=== PATIENT | male | born 1980 | race Caucasian/White ===

== ENCOUNTER 2017-12-30 08:23 | Emergency (ER) | payer MEDICAID, SELFPAY ==
[2017-12-30 08:35] VITALS: BP 122/82; PULSE 77; RESP 20; TEMP 36.9; O2SAT 98
[2017-12-30] MEDS: Normal Saline 1,000 ML 1000 ML IV (09:00)
--- NOTE | 2017-12-30 09:08 | DI.RPTCT_ITS ---
SYMPTOM/DIAGNOSIS: H/O TICS, LLQ PAIN CT ABDOMEN AND PELVIS: Comparison is made with 19 October 2016. Images were performed from the lung bases through the ischial tuberosities after IV and without oral contrast. There is marked wall thickening in the sigmoid colon along with multiple diverticula. There is stranding in the surrounding fat, consistent with diverticulitis. The inflammation is in the same location as on the previous examination. There is now marked circumferential bladder wall thickening. This may be secondary to adjacent inflammation from diverticulitis. There is no evidence of an abscess. There is a small amount of fluid in the pelvis. The lung bases are clear. Heart size is normal. The liver, gallbladder, spleen, pancreas, kidneys and adrenals are unremarkable. The appendix appears normal. There is no evidence of obstruction. IMPRESSION: Findings are consistent with sigmoid diverticulitis in the same location as on the previous exam. There is adjacent inflammation of the urinary bladder.
[2017-12-30 09:09] LABS: Abs Immature Grans 0.02 k/cumm (0.0-0.09); Absolute Basophil Count 0.01 k/cumm (0.0-0.2); Absolute Eosinophil Count 0.04 k/cumm (0.0-0.7); Absolute Lymphocyte Count 1.68 k/cumm (1.2-3.4); Absolute Monocyte Count 1.18 k/cumm (0.11-0.7); Absolute Neutrophil Count 9.34 k/cumm (1.2-6.7); Basophils % 0.1; Eosinophils % 0.3; HGB 15.4 g/dL (13.5-17.5); Immature Grans % 0.2; Lymphocytes % 13.7; Mean Corpuscular Hemoglobin 31.8 pg (27.0-33.0); Mean Corpuscular Volume 90.7 fL (80-95); Mean Platelet Volume 9.7 fL (8.0-11.0); Monocytes % 9.6; Neutrophils % 76.1; Platelet Count 217 x1000/uL (130-400); RBC 4.85 m/cumm (4.50-6.00); RBC Distribution Width 12.7 % (11.8-14.1); White Blood Cell Count 12.27 k/cumm (4.4-10.8)
[2017-12-30 09:22] LABS: ALT 29 U/L (12-78); AST 20 U/L (15-37); Albumin 3.9 g/dL (3.4-5.0); Alkaline Phosphatase 59 U/L (46-116); Amylase 44 U/L (25-115); Anion Gap 2.8 mmol/L (3-11); BUN 11 mg/dL (7-18); Bilirubin, Total 1.2 mg/dL (0.2-1.0); CO2 31.2 mmol/L (21.0-32.0); CREATININE 0.91 mg/dL (0.70-1.30); Calcium 8.6 mg/dL (8.5-10.1); Chloride 100 mmol/L (98-107); Glucose 89 mg/dL (70-100); Lipase 106 U/L (73-393); Magnesium 1.8 mg/dL (1.8-2.4); Potassium 4.3 mmol/L (3.5-5.1); Sodium 134 mmol/L (136-145); Total Protein 7.7 g/dL (6.4-8.2)
[2017-12-30 10:09] LABS: Bilirubin Negative (Negative); Blood Negative (Negative); Clarity Clear; Glucose Negative (Negative); Ketones Negative (Negative); Leukocyte Esterase Negative (Negative); Nitrite Negative (Negative); Urobilinogen 0.2 EU/dL (Up TO 0.2); pH 6.5 (5-8)
[2017-12-30] MEDS: Omnipaque 350 MG/ML 100 ML BTL IJ (10:15)
[2017-12-30] MEDS: CIPROFLOXACIN 400 MG/200 ML BAG 200 MG IVPB (10:44)
[2017-12-30] MEDS: MetroNIDAZOLE 500 MG/100 ML BAG 100 MG IVPB (10:45)
[2017-12-30] MEDS: Normal Saline Flush 10 ML SYR IVP (10:45)
--- NOTE | 2017-12-30 11:26 | ED.GENADUL ---
Disposition Clinical Impression: Diverticulitis Disposition: HOME Condition: Good Instructions: Diverticulitis (ED) Additional Instructions: Please take the antibiotics as directed. Please use Tylenol for your pain. Please do not drink any alcohol with your antibiotics. Or while taking the antibiotic. If you notice any pain in your joints, or your tendons please do not perform any vigorous exercise and contact the physician. If you notice any worsening of your symptoms, or any new symptoms such as vomiting, diarrhea, fever, chills, shortness of breath, chest pain, numbness, weakness, or fainting , please return immediately to the emergency department for reevaluation. Please follow up with your primary care provider as soon as possible for reassessment and reevaluation. As always, it was a pleasure participating in your medical care today. Prescriptions: Ciprofloxacin [Cipro] 500 mg PO BID #20 tab Metronidazole [Flagyl] 500 mg PO TID #30 tablet Referrals: Lissy Obrien NP [Primary Care Provider] - Medical Decision Making - Lab Data Laboratory Tests 12/30/17 12/30/17 12/30/17 08:51 08:51 08:51 WBC 12.27 H RBC 4.85 Hgb 15.4 Hct 44.0 MCV 90.7 MCH 31.8 MCHC 35.0 RDW 12.7 Plt Count 217 MPV 9.7 Immature Gran % 0.2 Neutrophils % 76.1 Lymphocytes % 13.7 Monocytes % 9.6 Eosinophils % 0.3 Basophils % 0.1 Absolute Neutrophils 9.34 H Absolute Lymphocytes 1.68 Absolute Monocytes 1.18 H Absolute Eosinophils 0.04 Absolute Basophils 0.01 Sodium 134 L Potassium 4.3 Chloride 100 Carbon Dioxide 31.2 Anion Gap 2.8 L BUN 11 Creatinine 0.91 Estimated GFR/1.73 m2 >= 60.00 Glucose 89 Calcium 8.6 Magnesium 1.8 Total Bilirubin 1.2 H AST 20 ALT 29 Alkaline Phosphatase 59 Total Protein 7.7 Albumin 3.9 Amylase 44 Lipase 106 Urine Color Urine Clarity Urine pH Ur Specific [place] Urine Protein Urine Ketones Urine Blood Urine Nitrite Urine Bilirubin Urine Urobilinogen Ur Leukocyte Esterase Urine Glucose Patient ABO/Rh O Positive Antibody Screen Negative 12/30/17 10:04 WBC RBC Hgb Hct MCV MCH MCHC RDW Plt Count MPV Immature Gran % Neutrophils % Lymphocytes % Monocytes % Eosinophils % Basophils % Absolute Neutrophils Absolute Lymphocytes Absolute Monocytes Absolute Eosinophils Absolute Basophils Sodium Potassium Chloride Carbon Dioxide Anion Gap BUN Creatinine Estimated GFR/1.73 m2 Glucose Calcium Magnesium Total Bilirubin AST ALT Alkaline Phosphatase Total Protein Albumin Amylase Lipase Urine Color Yellow Urine Clarity Clear Urine pH 6.5 Ur Specific [place] 1.010 Urine Protein Negative Urine Ketones Negative Urine Blood Negative Urine Nitrite Negative Urine Bilirubin Negative Urine Urobilinogen 0.2 Ur Leukocyte Esterase Negative Urine Glucose Negative Patient ABO/Rh Antibody Screen - Medical Decision Making This is a very pleasant 37-year-old male who presents with left lower quadrant pain. Signs and symptoms are concerning for diverticulitis. Laboratory workup demonstrates a mildly elevated white count, but he is afebrile, demonstrates no significant tachycardia, demonstrates only mild tenderness on exam. CT the scan results were reported by Dr. Mitchell, and were evidence of diverticulitis, but no evidence of abscess or perforation. The patient has been refusing pain medications and states that he is able to tolerate the pain well at this time. We have given him Cipro and Flagyl through the IV, we will give him a prescription for home use as he has been able to continue to tolerate p.o. well. We discussed red flags which to return, including the importance of avoiding alcohol and to be aware of any tendon pain, with his Cipro use and the patient understands. I have extensively reviewed the treatment plan and discharge instructions with the patient. I have addressed all patient concerns at this time. The patient was made aware of what symptoms to monitor for that would warrant a return to the emergency department. Discussed the plan with the patient, they demonstrate verbal understanding and agreement with our assessment and plan at this time. History of Present Illness - General Chief complaint: Abd Prob Stated complaint: DIVERTICULITIS Time Seen by Provider: 12/30/17 09:02 - History of Present Illness Initial comments: This is a 37-year-old male with a past medical history of diverticulitis who presents today for evaluation of left lower quadrant abdominal pain for the last 3 days. He has noticed a very small amount of blood in his stool, but no significant hemorrhage, or dark melena. He states that his symptoms are similar to his previous diverticulitis episodes. He has had no vomiting, and no significant diarrhea. He has been able to maintain a regular but limited diet. He denies any dysuria, or hematuria. He denies any fever, chills, or worsening of his pain. He was more concerned for the persistence of his pain. Patient denies any recent abdominal surgeries, any history of IV illicit drug use, or any pertinent family history. He denies any other complaints at this time. He does have an allergy to penicillins but has tolerated Cipro and Flagyl before. - Related Data Ibuprofen 800 mg PO TID PRN #30 tablet 07/24/17 Cetirizine HCl 10 mg PO DAILY #30 tab-cap 08/04/17 Ciprofloxacin [Cipro] 500 mg PO BID #20 tab 12/30/17 Metronidazole [Flagyl] 500 mg PO TID #30 tablet 12/30/17 Allergies Allergy/AdvReac Type Severity Reaction Status Date / Time Penicillins Allergy Severe hives Unverified 12/30/17 08:36 Review of Systems Other: 10 point review of systems was performed, pertinent positives and negatives are noted in the history of present illness. Past Medical History - Past Medical History Medical history: no medical history Surgical history: no surgical history - Social History Alcohol use: occasionally Drug use: none General Exam - Other Other exam information: 1.Const: Well-nourished, Well-developed, appearing stated age 2.Eyes: PERRL, no conjunctival injection, and symmetrical lids. 3.ENT: Atraumatic external nose and ears. Moist MM. Neck: Symmetric, trachea midline, No thyromegaly. 4.CVS: +S1/S2, No murmurs or gallops. Peripheral pulses 2+ and equal in all extremities. Brisk capillary refill in all extremities. 5.RESP: Unlabored respiratory effort. Clear to auscultation bilaterally. No wheezes rales or rhonchi 6.GI: Soft, Nontender/Nondistended, No hepatosplenomegaly. No guarding or rebound. Mild tenderness in left lower quadrant. No pain in the right lower quadrant. Negative Calle sign. Negative obturator and psoas sign. 7.MSK: Normocephalic/Atraumatic, Extremities w/o deformity or ttp No cyanosis or clubbing, Normal movement of all extremities 8.Skin: Warm, Dry. No rashes or lesions. 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 Sensation grossly intact, no focal neurologic deficits. 10.Psych: (AAO) x3. Appropriate mood and affect Course Vital Signs - 24 hr 12/30/17 08:35 Temperature 36.9 C Pulse 77 Respiratory 20 Rate Blood Pressure 122/82 Pulse Oximetry 98
[2017-12-30 12:08] VITALS: BP 136/74; PULSE 64; RESP 18; TEMP 36.9; O2SAT 98
== END 2017-12-30 11:50 | disposition home or self-care (01) ==
PROVIDERS: Emergency Provider Student in an Organized Health Care Education/Training Program; PCP Nurse Practitioner Family
DX: K57.33 Diverticulitis of large intestine without perforation or abscess with bleeding (principal); R10.32 Left lower quadrant pain
CPT/HCPCS: 80053; 83690; 86850; 86900; 86901; 96361; 96365; 96368; 99285; 74177; 81003; 82150; 83735; 85025; J0744; J3490

== ENCOUNTER 2018-02-25 18:54 | Emergency (ER) | payer MEDICAID, SELFPAY ==
[2018-02-25 19:16] VITALS: BP 115/70; PULSE 82; RESP 20; TEMP 37.2; O2SAT 99
[2018-02-25 19:55] LABS: Abs Immature Grans 0.02 k/cumm (0.0-0.09); Absolute Basophil Count 0.03 k/cumm (0.0-0.2); Absolute Eosinophil Count 0.07 k/cumm (0.0-0.7); Absolute Lymphocyte Count 2.23 k/cumm (1.2-3.4); Absolute Monocyte Count 1.07 k/cumm (0.11-0.7); Absolute Neutrophil Count 8.19 k/cumm (1.2-6.7); Basophils % 0.3; Eosinophils % 0.6; HGB 13.6 g/dL (13.5-17.5); Immature Grans % 0.2; Lymphocytes % 19.2; Mean Corp. HGB Concentration 34.9 g/dL (32.0-36.0); Mean Corpuscular Hemoglobin 31.8 pg (27.0-33.0); Mean Corpuscular Volume 91.1 fL (80-95); Mean Platelet Volume 9.5 fL (8.0-11.0); Monocytes % 9.2; Neutrophils % 70.5; Platelet Count 249 x1000/uL (130-400); RBC 4.28 m/cumm (4.50-6.00); RBC Distribution Width 12.2 % (11.8-14.1); White Blood Cell Count 11.61 k/cumm (4.4-10.8)
--- NOTE | 2018-02-25 20:02 | ED.GENADUL_ITS ---
Discharge Plan Disposition Patient Disposition: HOME Condition: Stable Discharge Details Chief Complaint: Abd Prob Clinical Impression: Diverticulitis Primary Care Provider: Lissy Obrien ED Provider: Earle Hall Home Meds and New Rx's Prescriptions: New metronidazole 500 mg tablet 500 mg PO TID Qty: 21 RF: 0 ciprofloxacin HCl 500 mg tablet 500 mg PO Q12H Qty: 14 RF: 0 Continue ibuprofen 800 MG tablet 800 mg PO TID PRN (Reason: Pain) Qty: 30 RF: 0 cetirizine 10 MG tablet 10 mg PO DAILY PRNRF: 0 Discharge Instructions Instructions: Diverticulitis (ED) Additional Instructions: if you have severe worsening of pain, high fevers or persistent vomit return to the emergency department Discharge Data Discharge Physician: Earle Hall Medical Decision Making 37 yo male who has a hx of diverticulitis, last this past December, comes in with llq pain since last and states it feels similar to his prior episodes of diverticulitis. He has mild pain in the llq without guarding or rebound and appears well systemically so dobut sepsis or abscess. Will obtain labs and monitor. Pt declines CT at this time which if he remains hd stable without fevers and his hx is reasonable at this time. HE has no rlq or other findings to suggest appendicitis and no testicle pain or swelling to suggest torsion pt's labs show no significant acute abnormalities. Still only has mild tenderness in llq. He is still preferring to start abx tx rather than ct, advised he must return if he worsens in anyway and will f/u as scheduled with his pcp on Friday Differential Diagnosis diverticulitis, colitis Lab Data Lab results reviewed: Yes I reviewed the patient's lab results. HPI General Mode of arrival: ambulatory . Date/Time Provider Initiated Documentation: 02/25/18 19:45 . Limitations to Documentation: no limitations . Information obtained by: patient . History of Present Illness 37 year old M presents to the emergency department with the chief complaint of abdominal pain, described as moderate, with intensity rated at 7. Quality is described as stabbing, and is localized to the abdomen. Patient reports no radiation. Patient started experiencing this day(s) (6) and it has been constant. No relieving factors improve symptom(s), No exacerbating factors reported . Patient did receive the following treatments prior to arrival, none Related Data Home Medications Medication Instructions Recorded Confirmed ibuprofen 800 mg PO TID PRN #30 tablet 07/24/17 02/25/18 cetirizine 10 mg PO DAILY PRN 02/25/18 02/25/18 ciprofloxacin HCl 500 mg PO Q12H #14 tab 02/25/18 metronidazole 500 mg PO TID #21 tab 02/25/18 Previous Rx's Medication Instructions Recorded ibuprofen 800 mg PO TID PRN #30 tablet 07/24/17 ciprofloxacin HCl 500 mg PO Q12H #14 tab 02/25/18 metronidazole 500 mg PO TID #21 tab 02/25/18 Allergies Allergy/AdvReac Type Severity Reaction Status Date / Time Penicillins Allergy Severe hives Unverified 02/25/18 19:21 General Stated Complaint: Abd Prob CHAPARRITA: 3 Review of Systems Review of Systems All systems reviewed & are unremarkable except as noted in HPI and below Constitutional Denies chills, Denies fever(s) and Denies weakness Eyes Denies loss of vision ENT Denies change in voice Cardiovascular Denies chest pain and Denies dyspnea Respiratory Denies dyspnea Gastrointestinal Denies vomiting Genitourinary Denies dysuria Musculoskeletal Denies joint swelling Integumentary/Breasts Denies rash Neurologic Denies loss of vision and Denies weakness Psychiatric Denies depression Endocrine Denies cold intolerance and Denies heat intolerance Allergic/Immunologic Reports urticaria PFSH Family History Mother No problems noted. Father No problems noted. Sister No problems noted. Grandfather Neoplasm Grandfather No problems noted. Grandmother Diabetes Cerebrovascular accident Asthma Grandmother Bipolar disorder Son Asthma Son No problems noted. Daughter No problems noted. Maternal Uncle MS (multiple sclerosis) Social History Smoking/Tobacco Use Status: Former Tobacco Use Surgical History Colonoscopy - IV Sedation (01/03/17) Vasectomy Exam Const General: no acute distress Orientation: alert HENMT Head: normal to inspection Ears: external ears normal General nose exam: external nose normal Mouth: moist mucous membranes Eyes General: appearance normal, both eyes and all related structures Neck Neck: normal visual inspection Resp Effort & Inspection: normal respiratory effort and able to speak in complete sentences Cardio Rate: regular rate Skin General skin exam: no rashes or lesions noted Neuro General: alert and oriented x3 Extrem General: normal to inspection Psych Mental Status: mental status grossly normal Course Vital Signs Temperature 37.2 C 02/25/18 19:16 Pulse 82 02/25/18 19:16 Respiratory Rate 20 02/25/18 19:16 Blood Pressure 115/70 02/25/18 19:16 Pulse Oximetry 99 02/25/18 19:16 Temperature 37.2 C 02/25/18 19:16 Temperature Source Skin 02/25/18 19:16 Pulse 82 02/25/18 19:16 Respiratory Rate 20 02/25/18 19:16 Respiratory Effort Non-Labored 02/25/18 19:19 Blood Pressure 115/70 02/25/18 19:16 Blood Pressure Position Sitting 02/25/18 19:16 Pulse Oximetry 99 02/25/18 19:16 Oxygen Delivery Method Room Air 02/25/18 19:16 Oxygen Flow Rate 0 02/25/18 19:16 Pain Level 7 02/25/18 19:16 Comment 02/25/18 19:16 Lab/Test Results Lab/Test Results: Laboratory Tests Range/Units 02/25/18 19:40 WBC (4.4-10.8) k/cumm 11.61 H RBC (4.50-6.00) m/cumm 4.28 L Hgb (13.5-17.5) g/dL 13.6 Hct (40.0-50.0) % 39.0 L MCV (80-95) fL 91.1 MCH (27.0-33.0) pg 31.8 MCHC (32.0-36.0) g/dL 34.9 RDW (11.8-14.1) % 12.2 Plt Count (130-400) x1000/uL 249 MPV (8.0-11.0) fL 9.5 Immature Gran % 0.2 Neutrophils % 70.5 Lymphocytes % 19.2 Monocytes % 9.2 Eosinophils % 0.6 Basophils % 0.3 Absolute Neutrophils (1.2-6.7) k/cumm 8.19 H Absolute Lymphocytes (1.2-3.4) k/cumm 2.23 Absolute Monocytes (0.11-0.7) k/cumm 1.07 H Absolute Eosinophils (0.0-0.7) k/cumm 0.07 Absolute Basophils (0.0-0.2) k/cumm 0.03
[2018-02-25 20:13] LABS: Lipase 85 U/L (73-393)
[2018-02-25] MEDS: Ketorolac 15 MG/ML VIAL IVP (20:22)
[2018-02-25] MEDS: Ciprofloxacin 500 MG TAB PO (20:59)
[2018-02-25] MEDS: metroNIDAZOLE 500 MG TAB PO (20:59)
[2018-02-25 21:07] LABS: Albumin 3.5 g/dL (3.4-5.0); Alkaline Phosphatase 57 U/L (46-116); BUN 12 mg/dL (7-18); Bilirubin, Total 0.8 mg/dL (0.2-1.0); CO2 28.8 mmol/L (21.0-32.0); CREATININE 0.98 mg/dL (0.70-1.30); Calcium 8.6 mg/dL (8.5-10.1); Glucose 82 mg/dL (70-100); Total Protein 7.6 g/dL (6.4-8.2)
[2018-02-25 21:08] LABS: ALT 32 U/L (12-78); AST 22 U/L (15-37)
[2018-02-25 21:14] LABS: Anion Gap 9.2 mmol/L (3-11); Chloride 100 mmol/L (98-107); Potassium 3.8 mmol/L (3.5-5.1); Sodium 138 mmol/L (136-145)
[2018-02-25 21:29] VITALS: BP 114/73; PULSE 77; RESP 18; TEMP 37.1; O2SAT 96
== END 2018-02-25 21:29 | disposition home or self-care (01) ==
PROVIDERS: Emergency Provider Emergency Medicine; PCP Nurse Practitioner Family
DX: K57.32 Diverticulitis of large intestine without perforation or abscess without bleeding (principal)
CPT/HCPCS: 36415; 80053; 83690; 96374; 99284; 85025; J1885

== ENCOUNTER 2018-09-02 08:54 | Outpatient (CLI) | payer MEDICAID, SELFPAY ==
[2018-09-02 11:26] LABS: Anion Gap 9.7 mmol/L (3-11); BUN 14 mg/dL (7-18); CO2 29.3 mmol/L (21.0-32.0); CREATININE 0.99 mg/dL (0.70-1.30); Calcium 8.9 mg/dL (8.5-10.1); Chloride 100 mmol/L (98-107); Cholesterol 208 mg/dL (50-200); Glucose 83 mg/dL (70-100); HDL Cholesterol 56 mg/dL (40-60); LDL CHOLESTEROL 135 mg/dL (<100); Potassium 4.4 mmol/L (3.5-5.1); Sodium 139 mmol/L (136-145); Triglyceride 58 mg/dL (30-150)
== END 2018-09-02 09:14 ==
PROVIDERS: PCP Nurse Practitioner Family; Visit Provider Nurse Practitioner Family
DX: Z13.220 Encounter for screening for lipoid disorders (principal)
CPT/HCPCS: 36415; 80048; 80061; 83721

== ENCOUNTER 2018-10-27 00:42 | Outpatient (CLI) | payer MEDICAID, SELFPAY ==
--- NOTE | 2018-10-27 09:28 | DI.MRI_ITS ---
SYMPTOMS/DIAGNOSIS: RIGHT SHOULDER IMPINGEMENT SYNDROME, POPS, CRACKS, ASSESS FOR ROTATOR CUFF TEAR MRI OF THE RIGHT SHOULDER: Comparison is made with plain films dated July,. Proton density and fat-suppressed T2 axial and coronal and T1 and fat-suppressed T2 sagittal sequences were performed. There are minimal degenerative changes of the AC joint with a question of some impingement on the supraspinatus muscle. The supraspinatus, infraspinatus, subscapularis and biceps tendons appear intact. There is no joint effusion or fluid in the subacromial-subdeltoid bursa. There are no gross labral defects. There is no muscular atrophy. The marrow signal appears normal. IMPRESSION: Mild degenerative changes of the AC joint with some impingement on the supraspinatus muscle. No evidence of a rotator cuff tear.
== END 2018-10-27 01:02 ==
PROVIDERS: PCP Nurse Practitioner Family; Visit Provider Nurse Practitioner Family
DX: M75.41 Impingement syndrome of right shoulder (principal); M19.011 Primary osteoarthritis, right shoulder
CPT/HCPCS: 73221

== ENCOUNTER 2020-04-18 09:52 | Outpatient (CLI) | payer MEDICAID, SELFPAY ==
[2020-04-21 18:55] LABS: COVID-19 RT-PCR Result NEGATIVE (Negative)
== END 2020-04-18 10:12 ==
PROVIDERS: PCP Nurse Practitioner Family; Visit Provider Nurse Practitioner Family
DX: Z11.59 Encounter for screening for other viral diseases (principal)
CPT/HCPCS: U0003

== ENCOUNTER 2020-04-24 08:37 | Outpatient (CLI) | payer MEDICAID, SELFPAY ==
[2020-04-25 17:31] LABS: COVID-19 RT-PCR UVMMC Result Negative (Negative)
== END 2020-04-24 08:57 ==
PROVIDERS: PCP Nurse Practitioner Family; Visit Provider Nurse Practitioner Family
DX: Z20.828 Contact with and (suspected) exposure to other viral communicable diseases (principal)
CPT/HCPCS: U0003

== ENCOUNTER 2020-05-01 08:53 | Outpatient (CLI) | payer MEDICAID, SELFPAY ==
[2020-05-02 19:02] LABS: COVID-19 RT-PCR UVMMC Result Negative (Negative)
== END 2020-05-01 09:13 ==
PROVIDERS: PCP Nurse Practitioner Family; Visit Provider Nurse Practitioner Family
DX: Z20.828 Contact with and (suspected) exposure to other viral communicable diseases (principal)
CPT/HCPCS: U0003

== ENCOUNTER 2020-08-07 10:01 | Outpatient (CLI) | payer MEDICAID, SELFPAY ==
--- NOTE | 2020-08-07 10:00 | RT.EKG_ITS ---
APPROVED REPORT Exam: Resting ECG Patient Location: O HR:65 bpm ECG Measurements Heart Rate 65 AXIS [place] 167 P 43 QRSd 103 QRS 57 QT 374 T 34 QTc 390 Conclusion Sinus rhythm...normal P axis, V-rate 60- 99
== END 2020-08-07 10:02 | disposition home or self-care (01) ==
LOC: DI.CM 10:02
PROVIDERS: PCP Nurse Practitioner Family; Visit Provider Family Medicine
DX: R07.9 Chest pain, unspecified (principal)
CPT/HCPCS: 93010

== ENCOUNTER 2020-08-07 10:32 | Outpatient (CLI) | payer MEDICAID, SELFPAY ==
[2020-08-07 12:38] LABS: Abs Immature Grans 0.02 10^3/uL (0.0-0.06); Absolute Basophil Count 0.03 10^3/uL (0.0-0.2); Absolute Eosinophil Count 0.13 10^3/uL (0.0-0.7); Absolute Lymphocyte Count 2.26 10^3/uL (1.2-3.4); Absolute Monocyte Count 0.65 10^3/uL (0.1-0.8); Absolute Neutrophil Count 4.36 10^3/uL (1.2-6.7); Basophils % 0.4; Eosinophils % 1.7; HCT 44.7 % (40.0-50.0); HGB 15.5 g/dL (13.5-17.5); Immature Grans % 0.3; Lymphocytes % 30.3; MCH 31.4 pg (27.0-33.0); MCHC 34.7 % (32.0-36.0); MCV 90.7 fL (80-95); MPV 9.9 fL (8.0-11.0); Monocytes % 8.7; Neutrophils % 58.6; Nucleated RBC 0 %; Platelet Count 259 10^3/uL (130-400); RBC 4.93 10^6/uL (4.36-5.78); RDW 12.1 % (11.8-14.1); RDW-SD 40.4 fL; WBC 7.45 10^3/uL (4.4-10.8)
[2020-08-07 13:19] LABS: ALT 37 U/L (16-63); AST 23 U/L (15-37); Alkaline Phosphatase 69 U/L (46-116); Anion Gap 4.7 mmol/L (3-11); BUN 18 mg/dL (7-18); Bilirubin, Total 0.5 mg/dL (0.2-1.0); CO2 31.3 mmol/L (21.0-32.0); Calcium 8.7 mg/dL (8.5-10.1); Chloride 103 mmol/L (98-107); Ferritin 324 ng/mL (26-388); Glucose 77 mg/dL (74-106); Potassium 4.6 mmol/L (3.5-5.1); Sodium 139 mmol/L (136-145); TSH 1.96 uIU/mL (0.36-3.74); Total Protein 7.6 g/dL (6.4-8.2)
== END 2020-08-07 10:33 | disposition home or self-care (01) ==
LOC: LOS 10:33
PROVIDERS: PCP Nurse Practitioner Family; Visit Provider Family Medicine
DX: R53.83 Other fatigue (principal)
CPT/HCPCS: 36415; 80053; 82728; 84443; 85025

== ENCOUNTER 2020-08-07 10:59 | Outpatient (RCR) | payer MEDICAID, SELFPAY ==
--- NOTE | 2020-08-07 15:15 | HOLTER_ITS ---
APPROVED REPORT Exam Type: HOLTER MONITOR APPLICATION Reason for Test: Palpitations Patient Location: O Conclusion This is a 48-hour monitor order for indication of palpitations. The patient was in normal sinus rhythm for the majority of the recording with an average heart rate o f 83 bpm. There were no episodes of atrial fibrillation, no pauses greater than 3 seconds and no evidence of hi gh degree heart block. There were no episodes of SVT nor any episodes of VT. There were 5 total PVCs and a total PACs. There were 3 patient triggered events all associated with normal sinus rhythm.
== END 2020-08-09 23:59 | disposition home or self-care (01) ==
LOC: RT 10:59
PROVIDERS: PCP Nurse Practitioner Family; Visit Provider Family Medicine
DX: R00.2 Palpitations (principal)
CPT/HCPCS: 93225; 93226

== ENCOUNTER 2020-12-26 12:40 | Outpatient (CLI) | payer MEDICAID, SELFPAY ==
--- NOTE | 2020-12-26 10:45 | DI.RAD_ITS ---
Exam(s) XR KNEE LT 3V AP,LAT,EMILY EXAM: XR KNEE LT 3V AP,LAT,EMILY CLINICAL HISTORY: Bilateral knee pain, reid, M25.561, M25.562 TECHNIQUE: COMPARISON: CR XR KNEE RT 3V AP,LAT,EMILY from 12/26/2020 FINDINGS: Three views were obtained. Cartilaginous joint spaces appear fairly well maintained. No gross joint effusion seen on the lateral view. No bony or soft tissue abnormality seen. IMPRESSION: RADIATION DOSE DELIVERED: Total DLP
--- NOTE | 2020-12-26 10:45 | DI.RAD_ITS ---
Exam(s) XR KNEE RT 3V AP,LAT,EMILY EXAM: XR KNEE RT 3V AP,LAT,EMILY CLINICAL HISTORY: bilateral knee pain, M25.561, M25.562 TECHNIQUE: COMPARISON: No exams were available for comparison FINDINGS: Three views were obtained. The cartilaginous joint spaces appear fairly well maintained. No signifi cant bony or soft tissue abnormality seen. No gross joint effusion on the lateral film. IMPRESSION: RADIATION DOSE DELIVERED: Total DLP
== END 2020-12-26 13:00 ==
PROVIDERS: PCP Nurse Practitioner Family; Visit Provider Nurse Practitioner Family
DX: M25.561 Pain in right knee (principal); M25.562 Pain in left knee
CPT/HCPCS: 73562

== ENCOUNTER 2022-06-19 15:47 | Emergency (ER) | payer MEDICAID, SELFPAY ==
[2022-06-19 15:49] VITALS: BP 116/80; PULSE 52; RESP 16; TEMP 36.5; O2SAT 96
--- NOTE | 2022-06-19 16:00 | DI.RAD_ITS ---
Exam(s) XR HAND LT COMPLETE EXAM: XR HAND LT COMPLETE CLINICAL HISTORY: hammer vs index finger. TECHNIQUE: 2D digital imaging was performed of the left hand. Three views were obtained. AP, later al and oblique views were obtained. COMPARISON: No exams were available for comparison FINDINGS: BONES: There is a tiny density at the medial aspect of the DIP joint in the index finger. No bony de structive lesion is seen. JOINTS: No dislocation present. SOFT TISSUE: There is soft tissue swelling of the index finger. No radiopaque foreign bodies are pre sent. IMPRESSION: There is a tiny density at the medial aspect of the DIP joint of the index finger. This is of indete rminate acuity but a small avulsed fracture fragment cannot be excluded. Please correlate with nesha felix's site of pain. DATA REPOSITORY: RADIATION DOSE DELIVERED:
--- NOTE | 2022-06-19 16:16 | W.ED.GENAD ---
Discharge Plan Disposition Patient Disposition: Home Condition: Improving Discharge Details Clinical Impression: Finger laceration Primary Care Provider: Lissy Obrien ED Provider: Darek Jett Home Meds and New Rx's Prescriptions: Continued cetirizine 10 mg tablet 10 mg PO DAILY PRN (Reason: allergy symptoms) Qty: 90 4RF fluticasone propionate [Flonase Allergy Relief] 50 mcg/actuation spray,suspension 1 spray intranasal DAILY Qty: 16 3RF Rx Instructions: administer into each nostril ibuprofen 800 MG tablet 800 mg PO TID PRN (Reason: Pain) Qty: 30 0RF Discharge Instructions Instructions: Finger Laceration (ED) Additional Instructions: Laceration repaired without difficulty. X-ray does not reveal any acute injury. Tetanus status was updated. Keep your wound clean and dry change the antibiotic dressing daily, you may leave the initial dressing on for the first 48 hours. [id number] Tylenol and/or Motrin as directed for discomfort. Please watch for new or worsening symptoms and return to the ER for any concerns. Lastly, I would like you to have your stitches removed in approximately 10 days Medical Decision Making 42-year-old gentleman, [id number], struck his finger with a hammer prior to arrival. Tetanus status is greater than 5 years old. Will obtain x-ray to rule out bony involvement, update tetanus, and repair the laceration. Laceration repaired without difficulty. Patient tolerated well. X-ray reveals a tiny bony density at the DIP, no pain there, patient reports that he had a previous injury there. Does not appear to be acute. Patient declined splinting. Tube gauze dressing applied Standard discharge and return precautions were provided. Patient understands, is agreeable to this plan, and has no additional questions or concerns upon discharge. This documentation was generated using meQuilibriumation system, please disregard any oddities of phrase or misspellings. Medical Records Medical records reviewed: Yes I reviewed the patient's medical records. Imaging Data Radiologic Study: Attestation: I personally reviewed and interpreted this imaging study as follows: Imaging: X-Ray Radiologist's impression: Exam(s) XR HAND LT COMPLETE EXAM: XR HAND LT COMPLETE CLINICAL HISTORY: hammer vs index finger. TECHNIQUE: 2D digital imaging was performed of the left hand. Three views were obtained. AP, lateral and oblique views were obtained. COMPARISON: No exams were available for comparison FINDINGS: BONES: There is a tiny density at the medial aspect of the DIP joint in the index finger. No bony destructive lesion is seen. JOINTS: No dislocation present. SOFT TISSUE: There is soft tissue swelling of the index finger. No radiopaque foreign bodies are present. IMPRESSION: There is a tiny density at the medial aspect of the DIP joint of the index finger. This is of indeterminate acuity but a small avulsed fracture fragment cannot be excluded. Please correlate with patient's site of pain. HPI General Mode of arrival: ambulatory. Date/Time Provider Initiated Documentation: 06/19/22 15:54. Limitations to Documentation: no limitations. Information obtained by: patient. History of Present Illness 42 year old M presents to the emergency department with the chief complaint of Left index finger injury, described as mild, with intensity rated at 3. Quality is described as aching, and is localized to the left and upper extremity. Patient reports no radiation. Patient started experiencing this minute(s) (45) and it has been constant. Immobilization improves symptom(s), Movement worsens symptoms . Patient notes no other symptoms.. Patient did receive the following treatments prior to arrival, none Related Data Home Medications Medication Instructions Recorded Confirmed ibuprofen 800 mg tablet 800 mg PO TID PRN Pain #30 tabs 18 06/19/22 cetirizine 10 mg tablet 10 mg PO DAILY PRN allergy 09/06/19 06/19/22 symptoms #90 tabs fluticasone propionate 50 1 spray intranasal DAILY #16 grams 09/10/21 06/19/22 mcg/actuation nasal spray,suspension (Flonase Allergy Relief) Previous Rx's Medication Instructions Recorded ibuprofen 800 mg tablet 800 mg PO TID PRN Pain #30 tabs 07/24/17 cetirizine 10 mg tablet 10 mg PO DAILY PRN allergy 09/06/19 symptoms #90 tabs fluticasone propionate 50 1 spray intranasal DAILY #16 grams 09/10/21 mcg/actuation nasal spray,suspension (Flonase Allergy Relief) Allergies Allergy/AdvReac Type Severity Reaction Status Date / Time Penicillins Allergy Severe hives Unverified 06/19/22 15:54 General Stated Complaint: Orthopedic CHAPARRITA: 4 Review of Systems Constitutional Constitutional: Denies weakness Musculoskeletal Musculoskeletal: Denies arthralgias, Denies numbness, Reports stiffness and Denies tingling Integumentary/Breasts Skin/Breast: Denies erythema and Denies rash Neurologic Neurologic: Denies numbness, Denies tingling and Denies weakness PFSH All Active Problems (Updated 06/19/22 @ 16:36 by BRYSON Canas) Finger laceration (Acute) Verruca vulgaris (Acute) Hyperlipidemia (Chronic) Surgical History S/P colonoscopy S/P vasectomy (~2007) Family History Mother No problems noted. Father No problems noted. Sister No problems noted. Son No problems noted. Son No problems noted. Daughter No problems noted. Maternal Grandfather , in his 80s of lung cancer Emphysema of lung Lung cancer Prostate cancer Maternal Grandmother , in her 80s Asthma Type 2 diabetes mellitus Breast cancer Stroke Paternal Grandfather Heart disease Myocardial infarction Paternal Grandmother , at 78 Bipolar disorder Maternal Uncle MS (multiple sclerosis) Social History Smoking/Tobacco Use Status: Current every day Tobacco Type: smokeless tobacco Smokeless tobacco user: chewing tobacco Quit status: considering quitting Second Hand Exposure: No Smoking risk assessment performed?: Yes Alcohol Intake: current Alcohol Intake frequency: 0-2 drinks per day Alcohol type: beer and hard liquor Drug use: Never Substance use type: does not use Caregiver/Support person: No Household members: spouse and children Housing: house Communication Needs: None Pets and animals: Yes Pets and animals: cat(s) and dog(s) Sexually active: Yes Do you think of yourself as: straight/heterosexual Current gender identity: male What is your relationship status?: How often do you talk on the phone with friends or family?: three or more times per week How often do you get together with friends or relatives?: once per week Do you belong to any clubs or organized social groups?: yes Panel score (0-1 are the most socially isolated patients): 3 Katlin/Holiness: None Special katlin needs: No Seatbelt use: sometimes Helmet use: Yes Helmet use: always Drive intox or ride w/intox corrugated fastener driver: No Do you feel safe in your relationship?: Yes Exam Const General: cooperative, healthy appearing, comfortable and no acute distress Orientation: alert and awake [facility] Head: normal to inspection, normocephalic and atraumatic Eyes Conjunctivae: conjunctivae normal Neck Neck: normal visual inspection, full ROM, no meningeal signs, trachea midline and supple Resp Effort & Inspection: normal respiratory effort and able to speak in complete sentences Cardio Rate: regular rate Rhythm: regular rhythm Skin General skin exam: no rashes or lesions noted Neuro General: patient alert, patient awake, moves all extremities and no focal motor deficits Cognition: normal cognition Speech: speech normal Gait: normal gait Motor: muscle tone normal throughout Sensory Exam: no sensory deficits noted Extrem General: full ROM and capillary refill normal Hand/finger images: 1. 2.5 cm laceration between the MCP and PIP joint, no active bleeding or obvious foreign body. Diffuse mild discomfort. No erythema, warmth, ecchymosis, signs of secondary infection. Full range of motion. Normal capillary refill and radial pulse. Neuro, vascular, tendon intact. Psych Appearance: grossly normal Mental Status: mental status grossly normal Course Vital Signs Vital signs: Vital Signs Temperature 36.5 C 06/19/22 15:49 Pulse 52 L 06/19/22 15:49 Respiratory Rate 16 06/19/22 15:49 Blood Pressure 116/80 06/19/22 15:49 Pulse Oximetry 96 06/19/22 15:49 Temperature 36.5 C 06/19/22 15:49 Temperature Source Temporal Artery Scan 06/19/22 15:49 Pulse 52 L 06/19/22 15:49 Respiratory Rate 16 06/19/22 15:49 Respiratory Effort 06/19/22 15:52 Blood Pressure 116/80 06/19/22 15:49 Blood Pressure Position Sitting 06/19/22 15:49 Pulse Oximetry 96 06/19/22 15:49 Oxygen Delivery Method Room Air 06/19/22 15:49 Oxygen Flow Rate 0 06/19/22 15:49 Pain Level 2 06/19/22 15:49 Procedures Laceration Laceration 1: Site: hand Side (If applicable): left Size (cm): 2.5 Description: linear and clean Depth: simple, single layer Local Anesthetic: Lidocaine 2%, Bupivicaine 0.5% and other anesthetic ([id number]-dem-robk mixture) Amount of anesthesia used (mL): 4 Pre-repair: wound explored, irrigated extensively and deep structures intact Skin layer closed with: nylon Size (cm): 5-0 Number of sutures: 4 Technique: simple, interrupted PAWSS Have you Been Recently Intoxicated or Drunk Within the Last 30 days?: No Have you Ever Experienced Previous Episodes of Alcohol Withdrawal?: No Have you ever Experienced Withdrawal Seizures?: No Have you ever Experienced Delirium Tremens(DT)s?: No Have you ever undergone Alcohol Rehabilitation Treatment (i.e, inpt ot outpatient treatment programs)?: No Have you ever Experienced Blackouts?: No Have you ever Combined Alcohol with other Downers within the last 90 days?: No Have you ever Combined Alcohol with any other Substance of Abuse during the last 90 days?: No Result: 0
[2022-06-19] MEDS: Bacitracin 1 PACKET (16:19)
== END 2022-06-19 16:50 | disposition home or self-care (01) ==
PROVIDERS: Emergency Provider Physician Assistant; PCP Nurse Practitioner Family
DX: S61.211A Laceration without foreign body of left index finger without damage to nail, initial encounter (principal); Z23 Encounter for immunization; W22.8XXA Striking against or struck by other objects, initial encounter
CPT/HCPCS: 12001; 90471; 99283; 73130; 99282

== ENCOUNTER 2022-09-27 02:25 | Outpatient (CLI) | payer MEDICAID, SELFPAY ==
[2022-09-27 08:10] LABS: Abs Immature Grans 0.03 10^3/uL (0.0-0.06); Absolute Basophil Count 0.04 10^3/uL (0.0-0.2); Absolute Eosinophil Count 0.14 10^3/uL (0.0-0.7); Absolute Lymphocyte Count 2.08 10^3/uL (1.2-3.4); Absolute Monocyte Count 0.59 10^3/uL (0.1-0.8); Absolute Neutrophil Count 3.03 10^3/uL (1.2-6.7); Basophils % 0.7; Eosinophils % 2.4; HGB 15.3 g/dL (13.5-17.5); Immature Grans % 0.5; Lymphocytes % 35.2; MCH 32.1 pg (27.0-33.0); MCHC 34.8 % (32.0-36.0); MCV 92 fL (80-95); MPV 9.3 fL (8.0-11.0); Neutrophils % 51.2; Platelet Count 266 10^3/uL (130-400); RBC 4.77 10^6/uL (4.36-5.78); RDW 12.3 % (11.8-14.1); WBC 5.91 10^3/uL (4.4-10.8)
[2022-09-27 08:53] LABS: Anion Gap 8.1 mmol/L (3-11); BUN 16 mg/dL (7-18); CO2 29.9 mmol/L (21.0-32.0); Calcium 8.6 mg/dL (8.5-10.1); Calculated LDL 134 mg/dL (<100); Chloride 102 mmol/L (98-107); Cholesterol 208 mg/dL (<200); Estimated GFR 96.97 (mL/min/1.73m2); Glucose 98 mg/dL (74-106); HDL Cholesterol 59 mg/dL (40-60); Potassium 4.1 mmol/L (3.5-5.1); Sodium 140 mmol/L (136-145); TSH (W/Ref FT4) 2.24 uIU/mL (0.36-3.74); Triglyceride 75 mg/dL (<150)
[2022-09-27 09:06] LABS: Hemoglobin A1C 5.5 % (<5.7)
[2022-10-01 16:21] LABS: Testosterone, Total 427 ng/dL (240-950)
== END 2022-09-27 02:26 | disposition home or self-care (01) ==
LOC: LBO 02:25
PROVIDERS: PCP Nurse Practitioner Family; Visit Provider Nurse Practitioner Family
DX: E78.5 Hyperlipidemia, unspecified (principal); R53.83 Other fatigue; Z13.29 Encounter for screening for other suspected endocrine disorder; Z13.1 Encounter for screening for diabetes mellitus
CPT/HCPCS: 36415; 80048; 80061; 84403; 83036; 84443; 85025

== ENCOUNTER 2023-08-04 16:01 | Outpatient (CLI) | payer MEDICAID, SELFPAY ==
--- NOTE | 2023-08-04 15:45 | DI.RAD_ITS ---
Exam(s) XR KNEE LT 4V AP,LAT,EMILY,PAT EXAM: XR KNEE LT 4V AP,LAT,EMILY,PAT CLINICAL HISTORY: eval L knee pain, medial and anterior. TECHNIQUE: 2D digital imaging was performed. Four views. COMPARISON: CR XR KNEE RT 4V AP,LAT,EMILY,PAT from 08/04/2023 FINDINGS: BONES: No acute fracture is present. No bony destructive lesion is seen. Small enthesophyte upper pole patella JOINTS: The knee is normally aligned. No joint effusion is seen. Joint spaces are maintained. No sig nificant degenerative changes. SOFT TISSUE: Normal. IMPRESSION: Normal radiographs of the left knee. DATA REPOSITORY: RADIATION DOSE DELIVERED:
--- NOTE | 2023-08-04 15:45 | DI.RAD_ITS ---
Exam(s) XR KNEE RT 4V AP,LAT,EMILY,PAT EXAM: XR KNEE RT 4V AP,LAT,EMILY,PAT CLINICAL HISTORY: Eval Right Medial/Anterior Knee Pain. TECHNIQUE: 2D digital imaging was performed. Four views. COMPARISON: CR XR KNEE LT 3V AP,LAT,EMILY from 12/26/2020 FINDINGS: BONES: No acute fracture is present. No bony destructive lesion is seen. JOINTS: The knee is normally aligned. No joint effusion is seen. Joint spaces are maintained. No s ignificant degenerative changes. SOFT TISSUE: Normal. IMPRESSION: Unremarkable radiographs of the right knee. DATA REPOSITORY: RADIATION DOSE DELIVERED:
== END 2023-08-04 16:02 | disposition home or self-care (01) ==
LOC: DIORS 16:01
PROVIDERS: PCP Nurse Practitioner Family; Visit Provider Student in an Organized Health Care Education/Training Program
DX: M25.561 Pain in right knee (principal); M25.562 Pain in left knee
CPT/HCPCS: 73564

== ENCOUNTER → 2023-08-25 04:43 | Outpatient (CLI) | payer MEDICAID, SELFPAY ==
--- NOTE | 2023-08-25 06:45 | DI.MRI_ITS ---
Exam(s) MR LOWER JOINT RT WO EXAM: MR LOWER JOINT RT WO CLINICAL HISTORY: PAIN,acute medial meniscus tear rt knee,S83.241a. TECHNIQUE: Multiplanar multisequence MRI was performed. COMPARISON: CR XR KNEE RT 4V AP,LAT,EMILY,PAT from 08/04/2023 FINDINGS: BONES: There is no fracture or contusion pattern. JOINTS: Hyperintense clefts are seen in the articular cartilage overlying the medial patellar facet. The underlying bone shows normal marrow signal. The articular cartilage is otherwise intact. No si gnificant joint effusion is seen. TENDONS: Extensor mechanism: Unremarkable. There is a small amount of edema seen anterior to the extensor mech anism distally. Medial retinaculum: Unremarkable. Lateral retinaculum: Unremarkable. Popliteus: Unremarkable. MUSCLES: Unremarkable. MENISCI: There is a tear of the posterior horn of the medial meniscus. The lateral meniscus is unrem arkable. SOFT TISSUES: Unremarkable. LIGAMENTS: Anterior Cruciate: Unremarkable. Posterior Cruciate: Unremarkable. Medial Collateral:Unremarkable. There is a small amount of hyperintense signal adjacent to the medial collateral ligament which may represent a very mild sprain. No evidence of a tear. Lateral Collateral: Unremarkable. OTHER: IMPRESSION: 1. Tear of the posterior horn of the medial meniscus. 2. Incidental finding seen in the knee as described above. DATA REPOSITORY:
== END ==
PROVIDERS: PCP Nurse Practitioner Family; Visit Provider Student in an Organized Health Care Education/Training Program
DX: S83.241A Other tear of medial meniscus, current injury, right knee, initial encounter (principal); X58.XXXA Exposure to other specified factors, initial encounter
CPT/HCPCS: 73721

== ENCOUNTER 2023-10-07 07:56 | Day surgery (SDC) | payer MEDICAID, SELFPAY ==
[2023-10-07] VITALS (9 sets, daily range): BP systolic 87–117; BP diastolic 52–80; PULSE 55–78; RESP 14–18; TEMP 36–36.6; O2SAT 94–97; BMI 29.3
--- NOTE | 2023-10-07 07:23 | W.PM.DSUDISC ---
Date of service: 10/07/23 Time of Service: 07:26 Discharge Plan Disposition Patient Disposition: Home Condition: Good Discharge Details Reason For Visit: Right knee medial meniscus tear Attending Provider: Kevin Potter Primary Care Provider: Lissy Obrien Home Meds and New Rx's Prescriptions: New hydrocodone-acetaminophen 5-325 mg tablet 1 tab PO Q6H PRN (Reason: severe pain) Qty: 6 0RF Rx Instructions: Take one tablet up to every 6 hours as needed for severe postoperative pain acetaminophen 500 mg tablet 500 mg PO Q6H PRN (Reason: pain) Qty: 60 2RF Continued cetirizine 10 mg tablet 10 mg PO DAILY PRN (Reason: allergy symptoms) Qty: 90 4RF ibuprofen 800 MG tablet 800 mg PO TID PRN (Reason: Pain) Qty: 30 0RF Discharge Instructions Stand Alone Forms: Anesthesia Discharge Inst., Crutch Training Instructions, Tariq Knee Arthroscopy, Myrna Carrion ([facility]) Referrals: Kevin Potter MD [ [facility] STAFF PHYSICIAN] - 10/20/23 2:15 pm Equipment/Supplies: Partial Weight Bearing Crutches Activity:: Activity as Tolerated Remove Dressings/Wound Care:: 48 hours Shower/Bathe:: 48 hours Diet:: As Tolerated Discharge Orders Discharge Orders: Discharge Order (Routine); Ordered 10/07/23 Ordered By: Marleen Cooper
--- NOTE | 2023-10-07 07:47 | W.PM.HP.N ---
Date of service: 10/07/23 Time of Service: 08:11 Assessment and Plan Assessment and plan (1) Complex tear of medial meniscus of right knee: Status: Acute (2) Internal derangement of right knee: Status: Acute Assessment and plan: Plan: Educated patient on surgery covering surgical technique, recovery process, benefits and risks including but not limited to risk of infection, blood clot, damage to soft tissue/blood vessels/nerves in detail. After discussion patient gives verbal understanding of risks and elects to proceed with scheduling surgery. Patient had opportunity to have questions answered to their satisfaction. They will contact office if issues arise. Patient will continue to be scheduled for right knee arthroscopy and associated procedures with Dr. Potter I interviewed and examined the patient with Marleen Saha PA-C. I agree with the documentation as above. The assessment and plan were formulated with my direct involvement. Sandie Hartman is an active 43-year-old has had persistent pain about his right knee. MRI showed a medial meniscal tear. Given the failure of other nonoperative options he elects to proceed with knee arthroscopy with partial medial meniscectomy. He is here today for that procedure. Once again I reviewed the technical details of the surgery. I discussed the risks include bleeding, infection, pain, stiffness, retear, worsening arthritis. Despite these risk, he elects to proceed. Kevin Potter MD FAAOS FAAHKS History of Present Illness Narrative: Mr. Haynes is a 43-year-old male who presents to hospital for scheduled right knee arthroscopy for known medial meniscus tear. Patient denies any changes to his symptoms since his last visit. Reports right knee pain that have been ongoing for over 3+ months. Due to his continued right knee pain and known meniscus tear confirmed on MRI he was offered and elected to proceed with surgery. Review of Systems Cardiovascular Cardiovascular: Denies chest pain, Denies dyspnea and Denies dyspnea on exertion Respiratory Respiratory: Denies cough, Denies dyspnea and Denies dyspnea on exertion PFSH All Active Problems Complex tear of medial meniscus of right knee (Acute) Internal derangement of right knee (Acute) Bilateral patellofemoral syndrome (Acute) VIRAL (obstructive sleep apnea) (Chronic) PSG 01/2023, managing with positional therapy IBS (irritable bowel syndrome) (Chronic) Hyperlipidemia (Chronic) Allergic rhinitis (Chronic) Chewing tobacco use (Chronic) Sigmoid diverticulosis (Chronic) 4 episodes of diverticulitis. Consulted [facility] 2018 Medical History Tubular adenoma of colon On 2018 colonoscopy Sigmoid diverticulitis Surgical History S/P colonoscopy S/P vasectomy (~2007) Family History Mother No problems noted. Father No problems noted. Sister No problems noted. Son No problems noted. Son No problems noted. Daughter No problems noted. Maternal Grandfather , in his 80s of lung cancer Emphysema of lung Lung cancer Prostate cancer Maternal Grandmother , in her 80s Asthma Type 2 diabetes mellitus Breast cancer Stroke Paternal Grandfather Heart disease Myocardial infarction Paternal Grandmother , at 78 Bipolar disorder Maternal Uncle MS (multiple sclerosis) Social History Smoking/Tobacco Use Status: Current every day Tobacco Type: smokeless tobacco Tobacco: How many years used: 20 Smokeless tobacco user: chewing tobacco Quit status: not considering quitting Second Hand Exposure: No Smoking risk assessment performed?: Yes Alcohol Intake: current Alcohol Intake frequency: 0-2 drinks per day Alcohol type: beer and hard liquor Drug use: Never Substance use type: does not use Counseling provided: provider counseling Caregiver/Support person: No Household members: spouse and children Housing: house Communication Needs: None Do you need help understanding health information?: Never Pets and animals: Yes Pets and animals: cat(s) and dog(s) Sexually active: Yes Do you think of yourself as: straight/heterosexual Current gender identity: male What is your relationship status?: How often do you talk on the phone with friends or family?: three or more times per week How often do you get together with friends or relatives?: once per week How often do you attend moravian or taoism services?: decline to answer Do you belong to any clubs or organized social groups?: yes Panel score (0-1 are the most socially isolated patients): 3 Katlin/Episcopal: None Special katlin needs: No Seatbelt use: sometimes Helmet use: Yes Helmet use: always Drive intox or ride w/intox driver utility worker: No Do you feel safe at home: Yes (Unable to assess privately) Do you feel safe in your relationship?: Yes Meds Allergies and Home Medications Allergies Allergy/AdvReac Type Severity Reaction Status Date / Time Penicillins Allergy Severe hives Verified 10/07/23 08:29 Home Medications Medication Instructions Recorded Confirmed Type ibuprofen 800 mg tablet 800 mg PO TID PRN Pain #30 tabs 07/24/17 10/07/23 Rx cetirizine 10 mg tablet 10 mg PO DAILY PRN allergy 09/06/19 10/07/23 Rx symptoms #90 tabs acetaminophen 500 mg tablet 500 mg PO Q6H PRN pain #60 tabs 10/07/23 Rx hydrocodone 5 mg-acetaminophen 325 1 tab PO Q6H PRN severe pain #6 10/07/23 Rx mg tablet tabs Exam Const General: cooperative and no acute distress Resp Effort & Inspection: normal respiratory effort and able to speak in complete sentences Auscultation: clear to auscultation bilaterally, no rales, no rhonchi and no wheezes Cardio Heart Sounds: S1 normal, S2 normal and no murmurs Time Spent Time spent with Patient: <40 minutes Time was spent: preparing to see the patient(eg.review tests), obtaining and/or reviewing separately otained hiistory and counseling the patient
--- NOTE | 2023-10-07 08:16 | ANES.PREOP_ITS ---
General Info Date of Service Date Performed: 10/07/23 Height: 5 ft 8 in Weight: 87.543 kg Body Mass Index (BMI): 29.3 Surgical Procedure: Operation Date: 10/07/23 09:55 Proposed Procedure Side Surgeon p Knee Arthroscopy w/Partial Medial Meniscectomy Right Kevin Potter MD Pre-Op Diagnosis Post-Op Diagnosis (1) Bilateral patellofemoral syndrome: (2) Internal derangement of right knee: Meds Allergies and Home Medications Allergies Allergy/AdvReac Type Severity Reaction Status Date / Time Penicillins Allergy Severe hives Verified 10/03/23 12:24 Home Medication Medication Instructions Recorded ibuprofen 800 mg tablet 800 mg PO TID PRN Pain #30 tabs 07/24/17 cetirizine 10 mg tablet 10 mg PO DAILY PRN allergy 09/06/19 symptoms #90 tabs acetaminophen 500 mg tablet 500 mg PO Q6H PRN pain #60 tabs 10/07/23 hydrocodone 5 mg-acetaminophen 325 1 tab PO Q6H PRN severe pain #6 10/07/23 mg tablet tabs Current Visit Medications: Current Medications Generic Name Dose Route Start Last Admin Trade Name Freq PRN Reason Stop Dose Admin Acetaminophen 1,000 mg 10/07/23 06:00 Acetaminophen 500 Mg Tab PO 10/07/23 23:59 PREOP GRIFFIN Acetaminophen 650 mg 10/07/23 07:16 Acetaminophen 325 Mg Tab PO 11/06/23 07:15 Q4H PRN PRN Hydrocodone Bitart/Acetaminophen 0 tab 10/07/23 07:16 Hydrocodone 5/Acetaminophen 325 Tab PO 11/06/23 07:15 Q3H PRN PRN Pain Celecoxib 400 mg 10/07/23 06:00 Celecoxib 200 Mg Cap PO 10/07/23 23:59 PREOP GRIFFIN Ringer's Solution 1,000 mls @ 80 mls/hr 10/07/23 06:00 IV 10/07/23 23:59 INFUSION GRIFFIN Cefazolin Sodium/Dextrose 2 gm in 50 mls @ 100 mls/hr 10/07/23 06:00 Ancef Duplex IVPB 10/07/23 23:59 PREOP [facility] IV Miscellaneous Supplies 1 each 10/07/23 06:00 Iv Access IV 10/07/23 23:59 DIRECTED GRIFFIN Sodium Chloride 0 ml 10/07/23 06:00 Normal Saline Flush 10 Ml Syr IV 10/07/23 23:59 PRN PRN Sodium Chloride 0 ml 10/07/23 06:00 Normal Saline 10 Ml Vial IJ 10/07/23 23:59 DIRECTED PRN Sterile Water 0 ml 10/07/23 06:00 Water,Injection,Sterile 10 Ml Vial IJ 10/07/23 23:59 DIRECTED PRN PFSH Active Problems Active Problems: Problem Status Onset Code Complex tear of medial meniscus of right knee S83.231A Internal derangement of right knee M23.91 Bilateral patellofemoral syndrome M22.2X1, M22.2X2 VIRAL (obstructive sleep apnea) G47.33 IBS (irritable bowel syndrome) K58.9 Hyperlipidemia E78.5 Allergic rhinitis J30.9 Chewing tobacco use Z72.0 Sigmoid diverticulosis K57.30 Medical History Medical History Tubular adenoma of colon On 2018 colonoscopy Sigmoid diverticulitis Surgical History Surgical History S/P colonoscopy S/P vasectomy (~2007) Tobacco Smoking/Tobacco Use Status: Current every day Tobacco Type: smokeless tobacco Smokeless tobacco user: chewing tobacco Passive smoking exposure: No Second hand exposure: No Alcohol Alcohol Intake: current Alcohol intake frequency: 0-2 drinks per day Alcohol type: beer and hard liquor Substance Use Substance use: Never Substance use type: does not use Counseling provided: provider counseling Vital Signs and Lab Results Lab Results Blood Type / Crossmatch: No Data to Display Complete Blood Count: No Data to Display Complete Metabolic Panel: No Data to Display Liver Function Panel: No Data to Display Coagulation Panel: No Data to Display Cardiac Panel: No Data to Display Arterial Blood Gas: No Data to Display Venous Blood Gas: No Data to Display Pancreas Panel: No Data to Display Thyroid Panel: No Data to Display Infectious Disease: No Data to Display Blood Cultures: No Data to Display Toxicology Panel: No Data to Display Anesthesia Assessment and Plan Anesthesia History Personal History: No History of Anesthesia Complications Family History: No Family History of Anesthesia Complications Exercise Tolerance Exercise Tolerance: Metabolic Equivalents>4 Pertinent Negatives Pertinent Negatives: No Symptoms of GERD Cardiac & Pulmonary Exam Cardiac Exam: Normal S1/S2 Heart Sounds Pulmonary Exam: Clear Bilateral Breath Sounds Implantable Cardiac Device Does patient have a Pacemaker or an ICD?: No Airway Exam Known Difficult Airway: No Mallampati Class: 2 Mouth Opening: Normal (> 3cm) Thyromental Distance: Greater than 3 cm Neck Range of Motion: Full ROM Neck Circumference: Normal Teeth Condition: Normal Dentition ASA Classification ASA Score: ASA 2 Emergency Case?: No NPO Status NPO Status: NPO Clears >2 hours, Solids >8 hours Anesthesia Plan Resuscitation Status: Full Code Anesthesia Technique: General Anesthesia Airway Planned: LMA Monitors Used: Standard Monitors
[2023-10-07] MEDS: Acetaminophen 500 MG TAB 1000 MG PO (08:27)
[2023-10-07] MEDS: Celecoxib 200 MG CAP 400 MG PO (08:28)
[2023-10-07] MEDS: Lactated Ringers 1,000 ML 80 ML IV (08:44)
[2023-10-07] MEDS: ceFAZolin 2 GM/50 ML BAG IVPB (08:52)
[2023-10-07] MEDS: Bupivacaine 0.5% Pres-Free 30 ML VIAL (09:13)
[2023-10-07] MEDS: EPINEPHrine 10 MG/10 ML ML (09:14)
--- NOTE | 2023-10-07 09:37 | ROE_ITS ---
Date of service: 10/07/23 Time of Service: 09:00 Operative Note Operative Note DATE OF PROCEDURE: 10/07/23 PRE-OP DIAGNOSIS: Complex Medial Meniscus Tear - Right Knee POST-OP DIAGNOSIS: same PROCEDURE: Arthroscopic partial medial meniscectomy SURGEON: Kevin Potter ANESTHESIA TYPE: General LMA/ETT Refer to Anesthesia Record ESTIMATED BLOOD LOSS: 5 PATHOLOGY: none sent COMPLICATIONS: None Patient was transported to: PACU Patient's condition: stable Indications: I have seen Devan in clinic for symptoms of a meniscus tear. This was confirmed based on MRI and exam findings. Nonoperative measures were exhausted but disability and pain persisted. I discussed knee arthroscopy with meniscal intervention with the patient. I reviewed the risks of the procedure to include, but not limited to, bleeding, infection, pain, stiffness, damage to nerves or vessels, recurrence, blood clot. Despite these risks, the patient elected to proceed. Findings: A diagnostic arthroscopy was performed with the following findings: Suprapatellar Pouch: No significant inflammation, No loose bodies Medial Compartment: Complex medial meniscal tear, Intact meniscal root, focal area of grade I/II chondromalacia over the posterior lateral aspect of the distal?medial femur, No loose bodies Notch: ACL and PCL were intact Lateral Compartment: No meniscal tear, Intact meniscal root, No significant chondromalacia or signs of arthritis, No loose bodies Patellofemoral Compartment: Grade II chondromalacia of the trochlea with some fraying of the medial aspect of the patellar cartilage, No apparent patellar maltracking Procedure Description: Devan was greeted in the preoperative holding area where the correct side was identified and marked. The consent was reviewed with the patient and signed. The history and physical was updated. All questions were answered. He was taken back to the operating room. The patient was placed into the supine position on the operating room table. All bony prominences were well padded. Prophylactic antibiotics in the form of Cefazolin were administered. The right leg was then prepped with Chloraprep and draped in a standard fashion with stockinette and extremity drape. A timeout to confirm correct identity, side and site, procedure, allergies, anesthesia, and medical concerns was performed. The leg was placed into a pneumatic leg peralta, [id number]. A standard lateral portal was made at the lateral border of the patella tendon in line with the inferior pole of the patella, soft spot. The skin and deep tissue was incised sharply and the blunt trochar was inserted atraumatically. A diagnostic arthroscopy was performed and the findings are listed above. The suprapatellar pouch had no significant inflammatory change. The patellofemoral articulation showed grade II chondromalacia of the trochlea with some minor fraying of the medial aspect of the patella cartilage with good tracking. The lateral gutter had no loose bodies and the medial gutter had no loose bodies. The knee was brought into some valgus stress in extension to open the medial compartment. A medial portal was made, localized by a spinal needle. The portal was created with an #11 blade through skin and capsule under direct visualization avoiding any meniscal injury. A probe was then inserted into the medial compartment. The medial compartment was fully inspected. The chondral surface of the tibia showed no significant chondromalacia and the surface of the femur showed a focal area of grade I/II chondromalacia involving the lateral aspect of the posterior medial femur. The medial meniscus had a complex tear with a parrot-beak type configuration adjacent to the root and a horizontal undersurface tearing extending towards the horn. After evaluation, the meniscus was debrided down to a stable base using a series of biters and arthroscopic gordo. It was probed afterwards to confirm that the tear had been removed and the meniscus was stable. Cartilage surfaces were debrided of any flaps, leaving any intact fi bers. The notch was then inspected which showed an intact ACL and an intact PCL. The leg was then brought into a figure of 4 position. The lateral compartment was fully inspected with the arthroscope and a probe. The chondral surface of the lateral femur showed no significant chondromalacia. The chondral surface of the lateral tibia showed no significant chondromalacia. The lateral meniscus had no meniscal tear. The arthroscope was brought back into the suprapatellar pouch and the leg was in full extension. The knee was thoroughly irrigated with the arthroscopic fluid on high flow and pressure. Inflow was stopped and excess fluid was removed. The wounds were closed with 4-0 Nylon. The knee was injected with 20 cc of 0.25% bupivacaine. The wounds were dressed with Xeroform, 4x4 gauze, ABD pad, Kerlix and an TOYA wrap. A cryo-cuff was applied. The patient tolerated the procedure well and was returned to the Same Day Surgery area in a stable condition suffering no known complication.
--- NOTE | 2023-10-07 10:15 | W.ANESPOSTOP ---
Postoperative Evaluation Date, Time and Location Date Performed: 10/07/23 Time Performed: 10:15 Patient Location: Day Surgery Unit Vital Signs Most Recent Imported Vital Signs: Most Recent Vital Signs Temp Pulse Resp BP Pulse Ox 36.3 C L 64 16 97/72 L 94 10/07/23 10:05 10/07/23 10:05 10/07/23 10:05 10/07/23 10:05 10/07/23 10:05 Pain Score Most Recent Pain Score: Most Recent Pain Score Pain Level 0 10/07/23 10:05 Assessment Mental Status: Awake (Alert & Oriented to Patient Baseline) Airway and Respiratory Function: Patent airway with normal (patient baseline) respiratory exam Cardiovascular Function: Hemodynamically Stable Hydration Status: Adequately Hydrated Nausea & Vomiting: No Nausea or Vomiting Pain: Pt. Denies Any Pain Peripheral Nerve Block: Patient did not receive a nerve block
== END 2023-10-07 11:38 | disposition home or self-care (01) ==
LOC: SUR 07:57
PROVIDERS: PCP Nurse Practitioner Family; Visit Provider Student in an Organized Health Care Education/Training Program
PROC: (CPT 29870; principal; 2023-10-07 09:45)
DX: M23.231 Derangement of other medial meniscus due to old tear or injury, right knee (principal); M94.261 Chondromalacia, right knee
CPT/HCPCS: 29881; J0665; J0690; J1100; J1885; J2001; J2250; J2405; J2704; J3010

== ENCOUNTER 2024-06-30 18:39 | Emergency (ER) | payer MEDICAID, SELFPAY ==
[2024-06-30 18:43] VITALS: BP 139/87; PULSE 77; RESP 18; TEMP 36.7; O2SAT 98
[2024-06-30 18:46] VITALS: PULSE 77; TEMP 36.7
--- NOTE | 2024-06-30 19:00 | DI.CT_ITS ---
Exam(s) CT ABDOMEN PELVIS W EXAM: CT ABDOMEN PELVIS W CLINICAL HISTORY: Lower abd pain, Hx Diverticulitis TECHNIQUE: Imaging Protocol: Axial computed tomography images with coronal and sagittal reformatted images were created and reviewed. CONTRAST MATERIAL: Intravenous: Omnipaque 350 Contrast volume:100 mL Oral: No FINDINGS: ABDOMEN: Lung Bases: No acute abnormality. Liver: Normal density. No measurable mass. Portal, Superior Mesenteric, and Splenic Veins: Unremarkable. Gallbladder and Biliary Tract: No radiodense calculus or dilation. Pancreas: Normal density, no abnormal calcifications or inflammatory process. Spleen: Normal. Adrenals: No masses seen. Kidneys: Normal size, contour and axis. No radiodense stones or obstructive uropathy. There is a simp le cyst in the right kidney. No follow-up is recommended. Abdominal Aorta: Abdominal portion non-dilated. Mild atherosclerotic calcification. Bowel: There is diverticulosis of the colon. There is bowel wall thickening seen in the mid sigmoid colon. Inflammatory stranding is seen in the surrounding soft tissues. There is a small amount of a djacent free fluid. There is no evidence of bowel obstruction. There is a normal appendix. Peritoneal Cavity: There is a trace amount of ascites in the pelvis. No focal fluid collection is se en to suggest an abscess. No free air. Lymph Nodes: Within normal limits. Bones: Within normal limits for the patient's age. Soft Tissues: There is a small fat containing umbilical hernia. PELVIS: Bladder: In the superior urinary bladder, there is mild wall thickening and adjacent inflammation. T his likely reflects a cystitis secondary to the adjacent sigmoid process. Reproductive Organs: Unremarkable as visualized. Lymph Nodes: Within normal limits. Bones: Within normal limits for the patient's age. IMPRESSION: 1. Findings most suggestive of acute sigmoid diverticulitis. Small amount of free fluid in the pelvi s. No focal fluid collection is seen to suggest an abscess. No definite pneumoperitoneum. Follow-u p examination should be considered to document resolution and to exclude an underlying mass or abnorm ality. RADIATION DOSE DELIVERED: 405.63mGy.cm Total DLP DATA REPOSITORY: All CT scans at this facility are submitted to the National Radiology Data Registry (NRDR) Dose Index Registry (DIR) with the [employer] (ACR). RADIATION OPTIMIZATION: All CT scans at this facility use at least one of these dose optimization te chniques: automated exposure control; mA and/or kV adjustment per patient size (includes targeted exa ms where dose is matched to clinical indication); or iterative reconstruction.
--- NOTE | 2024-06-30 19:11 | W.ED.GENAD ---
Discharge Plan Disposition Patient Disposition: Home Condition: Stable Discharge Details Clinical Impression: Acute diverticulitis Primary Care Provider: Lissy Obrien ED Provider: Ilda Yi Home Meds and New Rx's Prescriptions: New ciprofloxacin HCl [Cipro] 500 mg tablet 500 mg PO BID 10 Days Qty: 20 0RF Rx Instructions: Take 1 tablet by mouth twice daily for the next 10 days metronidazole 500 mg tablet 500 mg PO BID 10 Days Qty: 20 0RF Rx Instructions: Take 1 tablet by mouth twice daily for the next 10 days ondansetron 4 mg tablet,disintegrating 4 mg PO Q8H PRN (Reason: nausea and vomiting) 4 Days Qty: 9 0RF Rx Instructions: Take 1 tablet up to 3 times daily as needed for nausea and vomiting 20 minutes prior to meals. Continued cetirizine 10 mg tablet 10 mg PO DAILY PRN (Reason: allergy symptoms) Qty: 90 4RF ibuprofen 800 MG tablet 800 mg PO TID PRN (Reason: Pain) Qty: 30 0RF acetaminophen 500 mg tablet 500 mg PO Q6H PRN (Reason: pain) Qty: 60 2RF Discharge Instructions Instructions: Diverticulitis Additional Instructions: CT does show moderate diverticulitis of the sigmoid colon. Please take the antibiotics with yogurt or a probiotic as directed. You were given first dose here. Please take Tylenol or Ibuprofen with food every 4-6 hours as needed for pain and swelling. Liquids for the next 2 to 3 days. Advance diet as tolerated. Stay away from anything with seeds and berries. Return to the ER if you have any vomiting, worsening pain, fever or blood in your stool. Follow up with primary care provider in 3-5 days. Return to ED sooner if any worsening or concerns. Stand Alone Forms: Work Release Referrals: Lissy Obrien, LOGAN [Primary Care Provider] - 1 week HPI General Mode of arrival: ambulatory. Date/Time Provider Initiated Documentation: 06/30/24 18:40. Limitations to Documentation: no limitations. Information obtained by: patient, RN notes reviewed and old records reviewed. HPI Narrative: 44-year-old male presents to the ER with chief complaint of bilateral lower abdominal pain which began this morning. He reports nausea no vomiting reports intermittent constipation and diarrhea. He notes some mucus in his stool no blood. He has been taking ibuprofen for the pain. Does have a history of diverticulitis his last episode was years ago. Other past medical history includes tubular adenoma of colon, he has had a vasectomy. He also reports some dysuria. Related Data Home Medications ?Medication ?Instructions ?Recorded ?Confirmed ibuprofen 800 mg tablet 800 mg PO TID PRN Pain #30 tabs 07/24/17 06/30/24 cetirizine 10 mg tablet 10 mg PO DAILY PRN allergy 09/06/19 06/30/24 symptoms #90 tabs acetaminophen 500 mg tablet 500 mg PO Q6H PRN pain #60 tabs 10/07/23 06/30/24 ciprofloxacin HCl 500 mg tablet 500 mg PO BID Diverticulitis 10 06/30/24 (Cipro) days #20 tabs metronidazole 500 mg tablet 500 mg PO BID Diverticulitis 10 06/30/24 days #20 tabs ondansetron 4 mg disintegrating 4 mg PO Q8H PRN nausea and 06/30/24 tablet vomiting 4 days #9 tabs Previous Rx's ?Medication ?Instructions ?Recorded ibuprofen 800 mg tablet 800 mg PO TID PRN Pain #30 tabs 07/24/17 cetirizine 10 mg tablet 10 mg PO DAILY PRN allergy 09/06/19 symptoms #90 tabs acetaminophen 500 mg tablet 500 mg PO Q6H PRN pain #60 tabs 10/07/23 ciprofloxacin HCl 500 mg tablet 500 mg PO BID Diverticulitis 10 06/30/24 (Cipro) days #20 tabs metronidazole 500 mg tablet 500 mg PO BID Diverticulitis 10 06/30/24 days #20 tabs ondansetron 4 mg disintegrating 4 mg PO Q8H PRN nausea and 06/30/24 tablet vomiting 4 days #9 tabs Allergies Allergy/AdvReac Type Severity Reaction Status Date / Time Penicillins Allergy Severe hives Verified 06/30/24 18:45 General Stated Complaint: Abd Prob CHAPARRITA: 3 Review of Systems All systems reviewed & are unremarkable except as noted in HPI and below Gastrointestinal Gastrointestinal: Reports abdominal pain and Reports nausea Genitourinary Genitourinary: Reports dysuria Exam Narrative Exam Narrative: Constitutional: Alert and oriented x3. Appears stated age. Normal body habitus. Head: Normocephalic, no trauma. Eyes: Pupils PERRL, Red reflex noted, EOM's intact. Eyelids symmetrical without lesions, discharge, or swelling. ENT: Bilateral TM's WNL, External ear normal to inspection, no mastoid TTP, swelling, or erythema, Nasal turbinates WNL, no nasal discharge. Normal dentition, Posterior pharynx WNL, no exudate. Chest: RRR, Normal S1, S2, distal pulses intact. Resp: Lungs clear to auscultation bilaterally, no wheezes, rales, or rhonchi. Abdomen: Soft, non-distended, Normoactive bowel sounds all 4 quads. Musculoskeletal: Normal gait, Moves all 4 extremities without difficulty. Skin: No suspicious rashes or lesions. Capillary refill less than 2 sec. Neurologic: Cranial nerves II-XII intact. Alert and oriented x 3. Motor: No deficits noted. Sensory: Intact bilaterally all 4 extremities. Hematologic/Lymphatic: No ecchymosis, no lymphadenopathy. Course Vital Signs Vital signs: Vital Signs Temperature 36.7 C 06/30/24 18:43 Pulse 77 06/30/24 18:43 Respiratory Rate 18 06/30/24 18:43 Blood Pressure 139/87 06/30/24 18:43 Pulse Oximetry 98 06/30/24 18:43 Temperature 36.7 C 06/30/24 18:46 Temperature Source Oral 06/30/24 18:46 Pulse 77 06/30/24 18:46 Respiratory Rate 18 06/30/24 18:43 Blood Pressure 139/87 06/30/24 18:43 Blood Pressure Position Sitting 06/30/24 18:43 Pulse Oximetry 98 06/30/24 18:43 Oxygen Delivery Method Room Air 06/30/24 18:43 Oxygen Flow Rate 0 06/30/24 18:43 Pain Level 8 06/30/24 18:43 Medical Decision Making 44-year-old male presents to the ER with chief complaint of bilateral lower abdominal pain which began this morning. He reports nausea no vomiting reports intermittent constipation and diarrhea. He notes some mucus in his stool no blood. He has been taking ibuprofen for the pain. Does have a history of diverticulitis his last episode was years ago. Other past medical history includes tubular adenoma of colon, he has had a vasectomy. He also reports some dysuria. I did offer analgesic and nausea medication which patient declined at this time. Labs ordered including CBC CMP lipase urinalysis and CT abdomen pelvis. No leukocytosis, sodium potassium normal limits lipase within normal limits, urinalysis shows trace ketones no evidence of UTI. CT shows acute diverticulitis so will give Valente Gaspar and some Zofran to go home with. Discussed results, all her questions were answered to the best my ability. Discussed home care strict return instructions and follow-up care. This text was generated using [employer] dictation system, please disregard any oddities of phrase or misspellings. Patient remained hemodynamically stable throughout the remainder of his stay. Medical Records Medical records reviewed: Yes I reviewed the patient's medical records. Imaging Data Radiologic Study: Imaging: CT Scan Radiologist's impression: FINDINGS: Liver: Fatty liver with no mass lesions. Gallbladder and biliary ducts: No calcified stones. No gross ductal dilation. Pancreas: No ductal dilation. No mass . Spleen: No splenomegaly or suspicious lesions. Adrenal glands: No suspicious mass. Kidneys and ureters: Benign-appearing renal cyst(s) and/or probable cyst(s). No renal masses or hydronephrosis bilaterally. Stomach and bowel: Normal CT appearance of the stomach. Normal CT appearance of the duodenum. Moderate severity acute diverticulitis of the sigmoid colon, location similar to prior. Moderate wall thickening of the sigmoid colon. Diverticular inflammation. Surrounding edema.Moderate colonic stool burden. Scattered diverticula throughout the remainder of the colon without inflammation. No focal pathology in the small bowel. Appendix: No evidence of appendicitis. Intraperitoneal space: Trace pelvic free fluid, similar to prior. Vasculature: No abdominal aortic aneurysm. Lymph nodes: No significantly enlarged lymph nodes. Urinary bladder: The bladder is decompressed and the wall is not well assessed. Difficult to exclude minor wall thickening of the bladder dome. Reproductive: Unremarkable as visualized. Bones/joints: No acute fracture or subluxation. Mild lumbar spondylosis. Soft tissues: Tiny fat-containing umbilical hernia. IMPRESSION: 1. Moderate severity acute diverticulitis of the sigmoid colon, location similar to prior. 2. Trace pelvic free fluid, similar to prior. 3. Possible minor secondary cystitis. 4. Incidental findings as described. Thank you for allowing us to participate in the care of your patient. Dictated and Authenticated by: Pretty Billingsley MD Lab Data Lab results reviewed: Yes I reviewed the patient's lab results. Labs: Laboratory Tests Range/Units 06/30/24 06/30/24 18:57 19:25 WBC (4.4-10.8) 10^3/uL 10.64 RBC (4.36-5.78) 10^6/uL 4.63 Hgb (13.5-17.5) g/dL 14.6 Hct (40.0-50.0) % 42.9 MCV (80-95) fL 93 MCH (27.0-33.0) pg 31.5 MCHC (32.0-36.0) % 34.0 RDW (11.8-14.1) % 12.2 Plt Count (130-400) 10^3/uL 277 MPV (8.0-11.0) fL 9.2 Immature Gran % % 0.3 Neutrophils % % 72.8 Lymphocytes % % 16.9 Monocytes % % 8.9 Eosinophils % % 0.9 Basophils % % 0.2 Nucleated RBC % (0.0-0.3) % 0.0 Absolute Neutrophils (1.2-6.7) 10^3/uL 7.74 H Absolute Lymphocytes (1.2-3.4) 10^3/uL 1.80 Absolute Monocytes (0.1-0.8) 10^3/uL 0.95 H Absolute Eosinophils (0.0-0.7) 10^3/uL 0.10 Absolute Basophils (0.0-0.2) 10^3/uL 0.02 Sodium (136-145) mmol/L 140 Potassium (3.5-5.1) mmol/L 4.1 Chloride (98-107) mmol/L 102 Carbon Dioxide (21.0-32.0) mmol/L 30.3 Anion Gap (3-11) mmol/L 7.7 BUN (7-18) mg/dL 15 Creatinine (0.70-1.30) mg/dL 1.1 Est GFR (CKD-EPI 2020) (mL/min/1.73m2) 85.42 Glucose (74-106) mg/dL 92 Calcium (8.5-10.1) mg/dL 8.8 Magnesium (1.8-2.4) mg/dL 1.9 Total Bilirubin (0.2-1.0) mg/dL 0.86 AST (15-37) U/L 27 ALT (16-63) U/L 32 Alkaline Phosphatase (46-116) U/L 73 Total Protein (6.4-8.2) g/dL 7.5 Albumin (3.4-5.0) g/dL 4.0 Lipase (<78) U/L 33 Urine Color (Yellow) Yellow Urine Clarity (Clear) Sl Cloudy Urine pH (5-8) 7.5 Ur Specific [place] (1.005-1.025) 1.020 Urine Protein (Neg-Trace) mg/dL Negative Urine Ketones (Negative) mg/dL Trace H Urine Blood (Negative) Negative Urine Nitrite (Negative) Negative Urine Bilirubin (Negative) Negative Urine Urobilinogen (Up to 0.2) mg/dL 0.2 Ur Leukocyte Esterase (Negative) Negative Urine Glucose (Negative) mg/dL Negative Quality:SDOH Health Related Social Needs: No Data to Display PFSH All Active Problems (Updated 06/30/24 @ 20:31 by Ilda Yi NP) Acute diverticulitis (Acute) Bursitis, prepatellar, right (Acute) Complex tear of medial meniscus of right knee (Acute) Status post arthroscopy with partial medial meniscectomy: 10/07/2023 Bilateral patellofemoral syndrome (Acute) VIRAL (obstructive sleep apnea) (Chronic) PSG 01/2023, managing with positional therapy IBS (irritable bowel syndrome) (Chronic) Hyperlipidemia (Chronic) Allergic rhinitis (Chronic) Chewing tobacco use (Chronic) Sigmoid diverticulosis (Chronic) 4 episodes of diverticulitis. Consulted [facility] [place] [facility] 2018 Medical History Tubular adenoma of colon On 2018 colonoscopy Sigmoid diverticulitis Surgical History S/P colonoscopy S/P vasectomy (~2007) Family History Mother No problems noted. Father No problems noted. Sister No problems noted. Son No problems noted. Son No problems noted. Daughter No problems noted. Maternal Grandfather , in his 80s of lung cancer Emphysema of lung Lung cancer Prostate cancer Maternal Grandmother , in her 80s Asthma Type 2 diabetes mellitus Breast cancer Stroke Paternal Grandfather Heart disease Myocardial infarction Paternal Grandmother , at 78 Bipolar disorder Maternal Uncle MS (multiple sclerosis) Social History Smoking/Tobacco Use Status: Current every day Tobacco Type: smokeless tobacco Tobacco: How many years used: 20 Smokeless tobacco user: chewing tobacco Quit status: not considering quitting Second Hand Exposure: No Smoking risk assessment performed?: Yes Alcohol Intake: current Alcohol Intake frequency: 0-2 drinks per day Alcohol type: beer and hard liquor Drug use: Never Substance use type: does not use Counseling provided: provider counseling Caregiver/Support person: No Household members: spouse and children Housing: house Communication Needs: None Do you need help understanding health information?: Never Pets and animals: Yes Pets and animals: cat(s) and dog(s) Sexually active: Yes Do you think of yourself as: straight/heterosexual Current gender identity: male What is your relationship status?: How often do you talk on the phone with friends or family?: three or more times per week How often do you get together with friends or relatives?: once per week How often do you attend restorationism or druze services?: decline to answer Do you belong to any clubs or organized social groups?: yes Panel score (0-1 are the most socially isolated patients): 3 [place]/Muslim: None Special katlin needs: No Seatbelt use: sometimes Helmet use: Yes Helmet use: always Drive intox or ride w/intox 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
[2024-06-30 19:14] LABS: Abs Immature Grans 0.03 10^3/uL (0.0-0.06); Absolute Basophil Count 0.02 10^3/uL (0.0-0.2); Absolute Monocyte Count 0.95 10^3/uL (0.1-0.8); Absolute Neutrophil Count 7.74 10^3/uL (1.2-6.7); Basophils % 0.2 %; Eosinophils % 0.9 %; HCT 42.9 % (40.0-50.0); HGB 14.6 g/dL (13.5-17.5); Immature Grans % 0.3 %; Lymphocytes % 16.9 %; MCH 31.5 pg (27.0-33.0); MCV 93 fL (80-95); MPV 9.2 fL (8.0-11.0); Monocytes % 8.9 %; Neutrophils % 72.8 %; Platelet Count 277 10^3/uL (130-400); RBC 4.63 10^6/uL (4.36-5.78); RDW 12.2 % (11.8-14.1); WBC 10.64 10^3/uL (4.4-10.8)
[2024-06-30 19:27] LABS: ALT 32 U/L (16-63); AST 27 U/L (15-37); Alkaline Phosphatase 73 U/L (46-116); Anion Gap 7.7 mmol/L (3-11); BUN 15 mg/dL (7-18); Bilirubin, Total 0.86 mg/dL (0.2-1.0); CO2 30.3 mmol/L (21.0-32.0); CREATININE 1.1 mg/dL (0.70-1.30); Calcium 8.8 mg/dL (8.5-10.1); Chloride 102 mmol/L (98-107); Estimated GFR 85.42 (mL/min/1.73m2); Glucose 92 mg/dL (74-106); Lipase 33 U/L (<78); Magnesium 1.9 mg/dL (1.8-2.4); Potassium 4.1 mmol/L (3.5-5.1); Sodium 140 mmol/L (136-145); Total Protein 7.5 g/dL (6.4-8.2)
[2024-06-30 19:33] LABS: Bilirubin Negative (Negative); Blood Negative (Negative); Clarity Sl Cloudy (Clear); Glucose Negative (Negative); Ketones Trace mg/dL (Negative); Leukocyte Esterase Negative (Negative); Nitrite Negative (Negative); Urobilinogen 0.2 mg/dL (Up to 0.2); pH 7.5 (5-8)
[2024-06-30] MEDS: Omnipaque 350 MG/ML 100 ML BTL IJ (19:47)
--- NOTE | 2024-06-30 20:21 | DI.VRAD_ITS ---
PROCEDURE INFORMATION: Exam: CT Abdomen And Pelvis With Contrast Exam date and time: 06/30/2024 19:48 Age: 44 years old Clinical indication: Other: Lower abd pain, HX diverticulitis TECHNIQUE: Imaging protocol: Computed tomography of the abdomen and pelvis with contrast. Contrast material: OMNIPAQUE 350; Contrast volume: 100 ml; Contrast route: INTRAVENOUS (IV); COMPARISON: CT Abdomen^ROUTINE ABDOMEN PELVIS WITH CONTRAST (Adult) 12/30/2017 10:03 FINDINGS: Liver: Fatty liver with no mass lesions. Gallbladder and biliary ducts: No calcified stones. No gross ductal dilation. Pancreas: No ductal dilation. No mass . Spleen: No splenomegaly or suspicious lesions. Adrenal glands: No suspicious mass. Kidneys and ureters: Benign-appearing renal cyst(s) and/or probable cyst(s). No renal masses or hydronephrosis bilaterally. Stomach and bowel: Normal CT appearance of the stomach. Normal CT appearance of the duodenum. Moderate severity acute diverticulitis of the sigmoid colon, location similar to prior. Moderate wall thickening of the sigmoid colon. Diverticular inflammation. Surrounding edema.Moderate colonic stool burden. Scattered diverticula throughout the remainder of the colon without inflammation. No focal pathology in the small bowel. Appendix: No evidence of appendicitis. Intraperitoneal space: Trace pelvic free fluid, similar to prior. Vasculature: No abdominal aortic aneurysm. Lymph nodes: No significantly enlarged lymph nodes. Urinary bladder: The bladder is decompressed and the wall is not well assessed. Difficult to exclude minor wall thickening of the bladder dome. Reproductive: Unremarkable as visualized. Bones/joints: No acute fracture or subluxation. Mild lumbar spondylosis. Soft tissues: Tiny fat-containing umbilical hernia. IMPRESSION: 1. Moderate severity acute diverticulitis of the sigmoid colon, location similar to prior. 2. Trace pelvic free fluid, similar to prior. 3. Possible minor secondary cystitis. 4. Incidental findings as described. Dictated and Authenticated by: Pretty Billingsley MD. Orderin Kassidy Gonsales MD
[2024-06-30] MEDS: Ciprofloxacin 500 MG TAB PO (20:36)
[2024-06-30] MEDS: Normal Saline Flush 10 ML SYR IVP (20:37)
[2024-06-30] MEDS: metroNIDAZOLE 500 MG TAB, 3 TABS/BTL PO (20:37)
[2024-06-30] MEDS: Ondansetron O.D.T. 4 MG TABEF, 3 TABS/BTL PO (20:37)
[2024-06-30] MEDS: metroNIDAZOLE 500 MG TAB PO (20:37)
[2024-06-30 20:46] VITALS: BP 138/82; PULSE 77; RESP 20; TEMP 36.7; O2SAT 99
== END 2024-06-30 20:46 | disposition home or self-care (01) ==
PROVIDERS: Emergency Provider Registered Nurse Emergency; PCP Nurse Practitioner Family
DX: K57.32 Diverticulitis of large intestine without perforation or abscess without bleeding (principal); E78.5 Hyperlipidemia, unspecified; F17.220 Nicotine dependence, chewing tobacco, uncomplicated
CPT/HCPCS: 80053; 83690; 99285; 74177; 81003; 83735; 85025; 99284; J3490

== ENCOUNTER 2024-10-05 17:07 | Outpatient (REF) | payer MEDICAID, SELFPAY ==
[2024-10-05 22:52] LABS: TSH (W/Ref FT4) 1.52 uIU/mL (0.36-3.74)
[2024-10-06 19:29] LABS: HIV-1/2 Ag & Ab Screen Negative (Negative)
[2024-10-06 19:32] LABS: HBs Antibody, Quant 688.2 mIU/mL (See Note); Hep B Surface Ab Positive (See Note); Hepatitis B Core Antibody Negative (Negative); Hepatitis B Surface Antigen Negative (Negative)
[2024-10-06 19:37] LABS: Hepatitis C Ab w Rflx HCV PCR Negative (Negative)
== END 2024-10-05 17:08 | disposition home or self-care (01) ==
LOC: LBN 17:07
PROVIDERS: PCP Nurse Practitioner Family; Visit Provider Nurse Practitioner Family
DX: Z11.59 Encounter for screening for other viral diseases (principal); Z11.4 Encounter for screening for human immunodeficiency virus [HIV]; R53.83 Other fatigue
CPT/HCPCS: 86704; 86706; 86803; 87340; 87389; 84443